=== PATIENT | female | born 1935 | race Caucasian/White ===

== ENCOUNTER 2019-05-26 20:00 | Outpatient (CLI) | payer MEDICARE, SELFPAY | END 2019-05-26 20:01 | disposition home or self-care (01) | LOC: SLEEP 05-27 09:32 | PROVIDERS: Family Provider Family Medicine; Visit Provider Anesthesiology Pain Medicine | DX: G47.33 Obstructive sleep apnea (adult) (pediatric) (principal) | CPT/HCPCS: 95810; 95811 ==

== ENCOUNTER 2019-07-26 12:42 | Outpatient (CLI) | payer MEDICARE, SELFPAY ==
--- NOTE | 2019-07-26 12:52 | US_ITS ---
WS: [id number] Complete ABDOMINAL ULTRASOUND HISTORY: RUQ PAIN COMPARISON: None available. Liver: 14.0 cm in length. Liver is normal size and echogenicity with no mass or intrahepatic dilatati on. Gallbladder: Normally distended with no gallstones, wall thickening or pericholecystic fluid. Gallbladder wall thickness: 0.1 cm. Pancreas: Normal size and echogenicity. CBD: 0.6 cm. Top normal size. Right kidney: 11.9 cm x 4.9 cm x 4.3 cm. No mass, cortical thickening or hydronephrosis. Left kidney: 9.8 cm x 5.2 cm x 4.6 cm. No mass, cortical thickening or hydronephrosis. Spleen: Spleen is normal size measuring 9.7 cm in length with granulomata. Abdominal aorta and IVC are within normal limits. No ascites. US/US abdomen complete* [id number] IMPRESSION: 1. No cholelithiasis. 2. No renal obstruction. 3. Splenic granulomata.
== END 2019-07-26 12:43 | disposition home or self-care (01) ==
LOC: RAD 12:46
PROVIDERS: Family Provider Family Medicine; PCP Nurse Practitioner Family; Visit Provider Nurse Practitioner Family
DX: D73.89 Other diseases of spleen (principal); R10.11 Right upper quadrant pain; R63.0 Anorexia; R63.4 Abnormal weight loss
CPT/HCPCS: 76700

== ENCOUNTER 2019-07-30 11:50 | Outpatient (CLI) | payer MEDICARE, SELFPAY ==
--- NOTE | 2019-07-30 | CT_ITS ---
WS: [id number] CT ABDOMEN AND PELVIS WITH CONTRAST HISTORY: RUQ PAIN / LOSS OF APPETITE TECHNIQUE: Imaging performed of the abdomen and pelvis with IV contrast. Single phase imaging of the abdomen. Coronal and sagittal reformats are submitted. All CT scans at [facility] use at least one of these dose optimization techniques: automated exposure control; mA and/or kV adjustment per patient size (includes targeted exams where dose is matched to clinical indication); or iterativ e reconstruction. IV CONTRAST: Omnipaque 300; 95 mL IV. Oral contrast: Yes. DLP: 907.17 mGycm COMPARISON: None available. Lower thorax: Chronic emphysema. Heart size is moderately enlarged. No hiatal hernia. Liver/biliary system: Liver is normal size. Moderate intrahepatic biliary duct dilatation is new sinc e the prior ultrasound. Common bile duct has increased in size to 10 mm. At the pancreatic head the c ommon bile duct is 7 mm diameter. Very mild dilatation of the pancreatic duct. No obstructing process identified. Gallbladder: Normal. No gallstones or wall thickening. No pericholecystic fluid. Pancreas: Poorly visualized pancreas. Pancreatic duct is dilated about 3 mm. Spleen: Normal size spleen with a cyst. Cyst in the superior portion of the spleen measures 11 mm. Adrenal glands: Normal. Right kidney: Normal. Left kidney: Normal. Aorta: Moderate atherosclerosis with no aneurysm. Lymphadenopathy: No lymph nodes are identified. Evaluation for subtle adenopathy is difficult as ther e is very little mesenteric and omental fat. Free fluid: None. GI tract: Mild constipation. No mucosal thickening. Abdominal wall: Diffuse anasarca throughout the subcutaneous soft tissues of the abdomen. Pelvis: Prior hysterectomy. Bones: Severe osteopenia. Advanced degenerative spondylitic changes throughout the lumbar spine. Dege nerative changes in the pelvis. No osteoblastic or osteolytic bone disease. CT/CT abdomen pelvis w con* [id number] IMPRESSION: 1. Interval development of intrahepatic and extra hepatic biliary duct dilatat ion. Common bile duct measures 10 mm. Etiology of the obstruction is not eviden t. Common bile duct tapers towards the ampulla of Vater. Distal obstructing sto ne, stricture or mass needs to be excluded. Recommend follow-up MRCP or ERCP fo r further evaluation. 2. Diffuse mild anasarca. 3. Severe osteopenia. 4. Chronic emphysema.
[2019-07-30] MEDS: iodixanol 320 mg/mL 100mL Btl IV (13:24)
[2019-07-30] MEDS: iohexol 300 mg/mL 50 mL Btl PO (13:24)
== END 2019-07-30 11:51 | disposition home or self-care (01) ==
LOC: RADWPI 11:55
PROVIDERS: Family Provider Family Medicine; PCP Nurse Practitioner Family; Visit Provider Nurse Practitioner Family
DX: J43.9 Emphysema, unspecified (principal); K83.8 Other specified diseases of biliary tract; R10.11 Right upper quadrant pain; R63.0 Anorexia; R63.4 Abnormal weight loss; R60.1 Generalized edema; M85.89 Other specified disorders of bone density and structure, multiple sites
CPT/HCPCS: 74177; Q9967

== ENCOUNTER 2019-11-06 10:59 | Emergency (ER) | payer MEDICARE, SELFPAY ==
[2019-11-06 11:10] VITALS: BP 168/75; PULSE 77; RESP 16; TEMP 36.4; O2SAT 98; BMI 15.7
--- NOTE | 2019-11-06 11:25 | W.ED.ABDPA2 ---
HPI - Abdominal Pain General: Chief Complaint: Abdominal Pain Stated Complaint: ABD PAIN Time Seen by Provider: 11/06/19 11:19 History of Present Illness: HPI narrative: 84-year-old female presents with complaint of abdominal pain. She is having epigastric pain that became painful last night she says it is more and more just tender today. 3 weeks ago she had an ERCP with a stent done at [facility] in [facility] she had choledocholithiasis. She supposed to be going back on the of this month presumably for a laparoscopic cholecystectomy. At the same time of the ERCP she had an esophageal dilation done states she is not had any lab work done since the stenting last night she was nauseous and had some bilious vomiting this morning the pain has improved overnight. She denies any diarrhea denies any dysuria urgency or frequency denies any recent upper respiratory symptoms MD elicited complaint: abdominal pain Pertinent past history: other (Choledocholithiasis with esophageal stricture) Onset (ago): hour(s) (Pain worsening overnight) Pain Consistency: intermittent Location: Epigastric Severity: severe (Severe last night mild now) Quality: cramping and stabbing Radiation: none Migration to: no migration Exacerbating factors: eating Relieving factors: rest Context: other (Choledocholithiasis with a recent ERCP stent placement with esophageal dilation in the same setting) Associated Symptoms: Reports anorexia, bloating, GI cramping, nausea, poor appetite and vomiting; Denies change in stool character, coffee ground emesis, diarrhea, dyspepsia, dysuria, fever(s), heartburn, hematochezia, hematuria, hematemesis, loose stools and melena Treatments prior to arrival: other (Patient on chronic narcotic medications) Review of Systems Const: Denies: fever(s) ENMT: Denies: throat pain, ear or mastoid pain, nasal discharge or nasal congestion Card: Denies: chest pain, edema, dyspnea on exertion or orthopnea Resp: Denies: dyspnea, productive cough or non-productive cough GI: Reports: nausea, vomiting, bloating and GI cramping; Denies: hematemesis, coffee ground emesis, heartburn, diarrhea, change in stool character, hematochezia or melena : Denies: dysuria or hematuria Skin/Breast: Denies: rash or pruritus PFSH ED PFSH: Medical History (Updated 11/06/19 @ 14:31 by David Palencia DO) Choledocholithiasis Esophageal dilatation Esophageal stricture Surgical History (Updated 11/06/19 @ 12:50 by David Palencia DO) H/O hysterectomy for benign disease Previous back surgery S/P ERCP S/P placement of cardiac pacemaker Social History Smoking and tobacco status: never smoked Physical Exam Const: COMMON NORMALS: no acute distress GENERAL APPEARANCE: cooperative and comfortable ORIENTATION/CONSCIOUSNESS: Yes awake, Yes oriented to person, Yes oriented to place and Yes oriented to time HENMT: COMMON NORMALS: normocephalic, atraumatic, hearing grossly normal bilaterally, external ears normal, EAC's normal, TM's normal bilaterally, Normal nasal mucous membranes and turbinates present, moist oral mucous membranes and oropharynx normal HEAD & SCALP: normocephalic and atraumatic NOSE: Normal nasal mucous membranes and turbinates present EXTERNAL EAR: Yes external ears normal EXTERNAL AUDITORY CANAL: EAC's normal TYMPANIC MEMBRANE: TM's normal bilaterally Eye: COMMON NORMALS: Equal, round and reactive pupils present, EOMs intact bilaterally, conjunctivae normal and no scleral icterus CONJUNCTIVA: Yes conjunctivae normal PUPIL: Yes Equal, round and reactive pupils present Neck/C-Spine: COMMON NORMALS: full ROM, no lymphadenopathy, supple and no JVD Lymph: LYMPHATIC: no lymphadenopathy noted and no lymphedema noted Resp: COMMON NORMALS: normal respiratory effort, No retractions, No use of accessory muscles and clear to auscultation bilaterally AUSCULTATION: clear to auscultation bilaterally Cardio: COMMON NORMALS: no JVD, regular rate, regular rhythm and No murmurs present (Cardio) RATE: regular rate RHYTHM: regular rhythm GI: COMMON NORMALS: Soft to palpation and No hepatosplenomegaly present AUSCULTATION: Yes normoactive bowel sounds PALPATION: Yes Soft to palpation, Yes Tenderness to palpation present (GI) (Epigastrium), No Guarding due to palpation present (GI) and Yes No hepatosplenomegaly present Extremity: COMMON NORMALS: normal to inspection, capillary refill normal, no clubbing, cyanosis or edema, no calf tenderness and no pedal edema Neuro: SENSORIUM/ORIENTATION: Yes oriented to person, Yes oriented to place and Yes oriented to time Skin: NARRATIVE SKIN EXAM: Stage III sacral decubitus ulcer approximately quarter sized over the tip of the coccyx and lower sacrum Course Vital Signs: Vital signs: Vital Signs Temperature 97.6 F 11/06/19 15:00 Pulse Rate 95 11/06/19 15:00 Respiratory Rate 16 11/06/19 15:00 Blood Pressure 153/88 11/06/19 15:00 Pulse Oximetry 95 11/06/19 15:00 MDM - Abdominal Pain MDM Narrative: Medical decision making narrative: She has no finding obstruction at this time and nothing really acute who will discharge her home she can use Reglan for nausea clear liquid diet for 24 hours or worsen or changes return. She has a pretty impressive sacral ulcer we will try to get her set up for the wound care clinic for that. She is scheduled to go back to [place] to have her lap axel done recommend that she continue with this. Lab Data: Attestation: I reviewed the patient's lab results. Labs: Lab Results 11/06/19 11/06/19 11/06/19 Range/Units 11:22 11:22 11:22 WBC 8.9 (4.0-10.0) 10^3/ uL RBC 3.83 L (4.1-5.3) 10^6/u L Hgb 11.7 (11.5-15.3) g/dL Hct 37.6 (37.0-47.0) % MCV 98.2 (81-99) fL MCH 30.5 (28.0-34.0) pg MCHC 31.1 (30.0-36.0) g/dL RDW 13.6 (12.1-15.1) % Plt Count 286 (130-400) 10^3/c mm MPV 11.6 H (7.4-10.4) fL Neut % (Auto) 80.9 % Lymph % (Auto) 14.6 % Owsley % (Auto) 3.8 % Eos % (Auto) 0.3 % Baso % (Auto) 0.2 % Neut # (Auto) 7.2 (1.8-7.7) 10^3/u L Lymph # (Auto) 1.3 (0.8-4.8) 10^3/u L Owsley # (Auto) 0.3 (0.2-0.9) 10^3/u L Eos # (Auto) 0.0 (0.0-0.8) 10^3/u L Baso # (Auto) 0.0 (0.0-0.1) 10^3/u L Nucleated RBC % (a uto) 0 % Nucleated RBCs # 0.0 /100WBC PT 19.10 H (10.5-13.3) SECO NDS INR 1.55 H (0.8-1.2) Sodium 142 (136-145) mmol/L Potassium 3.9 (3.5-5.1) mmol/L Chloride 101 (98-107) mmol/L Carbon Dioxide 33 H (22-29) mmol/L Anion Gap 11.9 (5-19) BUN 26 H (8-23) mg/dL Creatinine 0.3 L (0.5-0.9) mg/dL Glucose 153 H (65-115) mg/dL Calculated Osmolal ity 294 (285-295) mOsm/k g Calcium 9.7 (8.5-10.5) mg/dL Total Bilirubin 0.7 (0.15-1.2) mg/dL AST 28 (0-32) U/L ALT 27 (0-33) U/L Alkaline Phosphata se 121 H (35-105) IU/L Total Protein 6.5 L (6.6-8.7) g/dL Albumin 3.7 (3.5-5.2) g/dL Globulin 2.8 (1.3-4.6) g/dL Lipase 20 (13-60) U/L Urine Color (Yellow) Urine Appearance (CLEAR) Urine pH (5-7) Ur Specific Gravit y (1.005-1.030) Urine Protein (Negative) Urine Glucose (UA) (Normal) Urine Ketones (Negative) Urine Blood (Negative) Urine Nitrate (Negative) Urine Bilirubin (NEGATIVE) Prot Sulfosalicyli c Acd (Negative) Urine Urobilinogen (Negative) mg/dL Ur Leukocyte Siobhan ase (Negative) Urine RBC (0-2) /hpf Urine WBC (0-5) /hpf Ur Squamous Epith Cells (0-5) Amorphous Sediment Urine Bacteria (NONE) 20/20 Range/Units 14:32 WBC (4.0-10.0) 10^3/ uL RBC (4.1-5.3) 10^6/u L Hgb (11.5-15.3) g/dL Hct (37.0-47.0) % MCV (81-99) fL MCH (28.0-34.0) pg MCHC (30.0-36.0) g/dL RDW (12.1-15.1) % Plt Count (130-400) 10^3/c mm MPV (7.4-10.4) fL Neut % (Auto) % Lymph % (Auto) % Owsley % (Auto) % Eos % (Auto) % Baso % (Auto) % Neut # (Auto) (1.8-7.7) 10^3/u L Lymph # (Auto) (0.8-4.8) 10^3/u L Owsley # (Auto) (0.2-0.9) 10^3/u L Eos # (Auto) (0.0-0.8) 10^3/u L Baso # (Auto) (0.0-0.1) 10^3/u L Nucleated RBC % (a uto) % Nucleated RBCs # /100WBC PT (10.5-13.3) SECO NDS INR (0.8-1.2) Sodium (136-145) mmol/L Potassium (3.5-5.1) mmol/L Chloride (98-107) mmol/L Carbon Dioxide (22-29) mmol/L Anion Gap (5-19) BUN (8-23) mg/dL Creatinine (0.5-0.9) mg/dL Glucose (65-115) mg/dL Calculated Osmolal ity (285-295) mOsm/k g Calcium (8.5-10.5) mg/dL Total Bilirubin (0.15-1.2) mg/dL AST (0-32) U/L ALT (0-33) U/L Alkaline Phosphata se (35-105) IU/L Total Protein (6.6-8.7) g/dL Albumin (3.5-5.2) g/dL Globulin (1.3-4.6) g/dL Lipase (13-60) U/L Urine Color Straw (Yellow) Urine Appearance Hazy A (CLEAR) Urine pH 8 H (5-7) Ur Specific Gravit y 1.010 (1.005-1.030) Urine Protein Neg (Negative) Urine Glucose (UA) Norm (Normal) Urine Ketones Negative (Negative) Urine Blood Neg (Negative) Urine Nitrate Negative (Negative) Urine Bilirubin Neg (NEGATIVE) Prot Sulfosalicyli c Acd Negative (Negative) Urine Urobilinogen Norm (Negative) mg/dL Ur Leukocyte Siobhan ase Negative (Negative) Urine RBC None (0-2) /hpf Urine WBC None (0-5) /hpf Ur Squamous Epith Cells None (0-5) Amorphous Sediment 2+ Urine Bacteria Trace (NONE) Discharge Plan Discharge Patient Disposition: Home, Self-Care Clinical Impression: Cholelithiasis, Chronic back pain, Decubitus ulcer of sacral area Condition: Stable Prescriptions: New Reglan 10 mg tablet 10 mg PO Q6H PRN (Reason: nausea and vomiting) Qty: 20 RF: 0 No Action furosemide 40 mg tablet 40 mg PO DAILY RF: 0 sotalol 80 mg tablet 80 mg PO BID RF: 0 ondansetron HCl 4 mg tablet 4 mg PO Q6H PRN (Reason: nausea/vomiting) RF: 0 warfarin 2.5 mg tablet 2.5 mg PO DAILY RF: 0 potassium chloride 10 mEq tablet extended release 10 meq PO BID RF: 0 hydrocodone-acetaminophen 10-325 mg tablet 1 tab PO DAILY RF: 0 Euthyrox 25 mcg tablet 25 mcg PO DAILY RF: 0 morphine 60 mg tablet extended release 60 mg PO Q12H RF: 0 pantoprazole 40 mg tablet,delayed release (DR/EC) 40 mg PO BID RF: 0 ferrous sulfate 325 mg (65 mg iron) tablet 65 mg PO TID RF: 0 diltiazem HCl 120 mg capsule,extended release 24hr 120 mg PO BID RF: 0 hydrochlorothiazide 25 mg tablet 25 mg PO DAILY RF: 0 lovastatin 20 mg tablet 20 mg PO DAILY RF: 0 Discharge Orders: Discharge Order (Routine); Ordered 11/06/19 Ordered By: David Palencia Referrals: Jannette Villagran NP [Primary Care Provider] - Discharge Diet: As Directed Discharge Activity: Increase activity as tolerated Activity Restrictions/Additional Instructions: Case management will call to set up for wound care clinic Discharge Date/Time: 11/06/19 14:52 Coding Level of Care Code ED Packaging Line Attendant for Chg Fwd Exam Comprehensive
[2019-11-06 11:28] LABS: Basophils % 0.2 %; Eosinophils % 0.3 %; Hematocrit 37.6 % (37.0-47.0); Hemoglobin 11.7 g/dL (11.5-15.3); Lymphocytes # 1.3 10^3/uL (0.8-4.8); Lymphocytes % 14.6 %; Mean Corpuscular HGB Conc 31.1 g/dL (30.0-36.0); Mean Corpuscular Hemoglobin 30.5 pg (28.0-34.0); Mean Corpuscular Volume 98.2 fL (81-99); Mean Platelet Volume 11.6 fL (7.4-10.4); Monocytes # 0.3 10^3/uL (0.2-0.9); Monocytes % 3.8 %; Neutrophils # 7.2 10^3/uL (1.8-7.7); Neutrophils % 80.9 %; Nucleated Red Blood Cells % 0 %; Platelet Count 286 10^3/cmm (130-400); Red Blood Count 3.83 10^6/uL (4.1-5.3); Red Cell Distribution Width 13.6 % (12.1-15.1); White Blood Count 8.9 10^3/uL (4.0-10.0)
[2019-11-06 11:42] LABS: Alanine Aminotransferase 27 U/L (0-33); Albumin Level 3.7 g/dL (3.5-5.2); Alkaline Phosphatase 121 IU/L (35-105); Anion Gap 11.9 (5-19); Aspartate Amino Transferase 28 U/L (0-32); Blood Urea Nitrogen 26 mg/dL (8-23); Calcium 9.7 mg/dL (8.5-10.5); Carbon Dioxide 33 mmol/L (22-29); Chloride 101 mmol/L (98-107); Creatinine Clr Calc Pharmacy 33.3879; Globulin 2.8 g/dL (1.3-4.6); Glucose 153 mg/dL (65-115); Lipase 20 U/L (13-60); Osmolality Calculated 294 mOsm/kg (285-295); Potassium 3.9 mmol/L (3.5-5.1); Sodium 142 mmol/L (136-145); Total Bilirubin 0.7 mg/dL (0.15-1.2); Total Protein 6.5 g/dL (6.6-8.7)
--- NOTE | 2019-11-06 11:52 | USR_ITS ---
PROCEDURE INFORMATION: Exam: US Abdomen Limited, Right Upper Quadrant Exam date and time: 11/06/2019 11:54 AM Age: 84 years old Clinical indication: Abdominal pain; Patient HX: Recent cbd stent (still in place); Additional info: Abd pain TECHNIQUE: Imaging protocol: Real-time ultrasound of the abdomen with image documentation. Examination was focused on the right upper quadrant. COMPARISON: No relevant prior studies available. FINDINGS: Liver: Normal. No masses. Gallbladder: There is gallbladder sludge and questionable small gallstones. No gallbladder wall thickening. Common bile duct: Measures 0.5 cm. There is a biliary stent. Pancreas: Visualized pancreas is unremarkable. Right kidney: Measures 9.9 x 4.4 x 5.4 cm. The renal cortex thickness is 1.2 cm. No mass. No hydronephrosis. There is a small amount of perihepatic ascites. The aorta and IVC appear unremarkable. Incidental note is made of a right pleural effusion. US/US gall bladder [id number] IMPRESSION: No acute findings.
[2019-11-06 12:06] VITALS: RESP 16; O2SAT 98
[2019-11-06] MEDS: morphine 4 mg/mL SDV 1 mL 2 MG IVP (12:06)
[2019-11-06] MEDS: ondansetron 2 mg/ML SDV 2 mL 4 MG IVP (12:06)
[2019-11-06 13:08] LABS: INR 1.55 (0.8-1.2)
[2019-11-06] MEDS: sodium chloride 0.9% 1,000 ML 999 ML IV (13:18)
[2019-11-06 15:00] VITALS: BP 153/88; PULSE 95; RESP 16; TEMP 36.4; O2SAT 95
[2019-11-06 15:30] LABS: Add Urine Culture? No; Add Urine Microscopic? YES; Amorphous Sediment Urine 2+; Bacteria Urine TRACE; Bilirubin Urine Neg (NEGATIVE); Blood Urine Neg (Negative); Glucose Urine UA Norm (Normal); Ketones Urine Negative (Negative); Leukocyte Esterase Urine Negative (Negative); Nitrate Urine Negative (Negative); Protein Urine Neg (Negative); Sulfosalicylic Acid Urine Negative (Negative); Urine Appearance Hazy (CLEAR); Urine Color Straw (Yellow); Urobilinogen Urine Norm (Negative); pH Urine 8 (5-7)
--- NOTE | 2019-11-08 11:25 | DCPLANNER ---
integrated campaign manager had message to schedule a follow up appointment for patient with Wound Care. integrated campaign manager called the Wound Care clinic, spoke with Yadi, gave clinic patients information. A follow up appointment is scheduled for , November 11, 2019 at 8:00 with Tyra. Clinic will call patient with appointment information.
--- NOTE | 2019-11-17 13:41 | DCPLANNER ---
Patient did attend appointment scheduled for 11.11.19 with [facility].
== END 2019-11-06 14:52 | disposition home or self-care (01) ==
PROVIDERS: Physician Assistant; Emergency Provider Family Medicine; PCP Nurse Practitioner Family
DX: K80.20 Calculus of gallbladder without cholecystitis without obstruction (principal); G89.29 Other chronic pain; M54.9 Dorsalgia, unspecified; L89.159 Pressure ulcer of sacral region, unspecified stage; Z79.01 Long term (current) use of anticoagulants; Z95.0 Presence of cardiac pacemaker
CPT/HCPCS: 12345; 36415; 76705; 80053; 81001; 83690; 85025; 85610; 96361; 96374; 96375; 99283; J2270; J2405; J7030

== ENCOUNTER 2019-11-12 13:13 | Outpatient (CLI) | payer MEDICARE, SELFPAY ==
[2019-11-12 17:04] LABS: Alanine Aminotransferase 21 U/L (0-33); Albumin Level 3.6 g/dL (3.5-5.2); Alkaline Phosphatase 96 IU/L (35-105); Aspartate Amino Transferase 20 U/L (0-32); Blood Urea Nitrogen 29 mg/dL (8-23); Calcium 9.8 mg/dL (8.5-10.5); Carbon Dioxide 34 mmol/L (22-29); Chloride 99 mmol/L (98-107); Globulin 2.2 g/dL (1.3-4.6); Glucose 96 mg/dL (65-115); Osmolality Calculated 285 mOsm/kg (285-295); Sodium 139 mmol/L (136-145); Total Bilirubin 0.5 mg/dL (0.15-1.2); Total Protein 5.8 g/dL (6.6-8.7)
[2019-11-12 18:08] LABS: Prealbumin 13.3 mg/dL (20-40)
== END 2019-11-12 13:14 | disposition home or self-care (01) ==
LOC: WOUND 13:16
PROVIDERS: PCP Nurse Practitioner Family; Visit Provider Surgery
DX: I96 Gangrene, not elsewhere classified (principal); L89.153 Pressure ulcer of sacral region, stage 3
CPT/HCPCS: 11042; 36415; 80053; 84134; G0463

== ENCOUNTER 2019-11-16 09:25 | Outpatient (CLI) | payer MEDICARE, SELFPAY ==
--- NOTE | 2019-11-16 09:15 | FL_ITS ---
WS: [id number] UPPER GI WITH AIR TECHNICAL: FLUOROSCOPY TIME: 3.8 minutes CLINICAL INFORMATION: K22.2 Esophageal obstruction COMPARISON: None. FINDINGS: Exam somewhat limited due to patient mobility. Swallowing: Normal. Esophagus: Normal caliber with mild dysmotility. No high-grade stricture or obstructing lesion. Sligh tly delayed emptying. Gastroesophageal reflux: Trace reflux. No significant hiatal hernia. Stomach: Double contrast stomach appears unremarkable. 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 Duodenal otherwise appears normal. No evidence of high-grade obstruction or stri cture. Other findings: None. FL/FL upper GI w air* [id number] IMPRESSION: 1. Mild esophageal dysmotility with slightly delayed emptying. 2. No esophageal stricture. 3. Normal GE junction. Trace reflux. 4. 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 Stomach and duodenum otherwise appear normal. No visualized duodenal struct ures. 6. Exam is somewhat limited due to patient mobility.
== END 2019-11-16 09:26 | disposition home or self-care (01) ==
LOC: RAD 09:28
PROVIDERS: PCP Nurse Practitioner Family; Visit Provider Surgery
DX: K22.2 Esophageal obstruction (principal); K31.5 Obstruction of duodenum
CPT/HCPCS: 74246

== ENCOUNTER 2019-11-24 09:59 | Day surgery (SDC) | payer MEDICARE, SELFPAY ==
[2019-11-23 12:16] VITALS: BMI 18.3
--- NOTE | 2019-11-23 12:23 | ECG_ITS ---
[facility] Test Date: 2019-11-23 Pat Name: Melissa Rivera Department: Room: Gender: Female [employer]: : [id number] Requested By: Rosita Lugo Order Number: [id number] Keenan MD: Elijah Lacy M.D. Measurements Intervals [place] Rate: 70 P: 115 MO: 131 QRS: 11 QRSD: 77 T: 60 QT: 419 QTc: 453 Interpretive Statements ELECTRONIC ATRIAL PACEMAKER POSSIBLE RIGHT VENTRICULAR CONDUCTION DELAY [RSR (QR) IN V1/V2] PROBABLE SEPTAL MYOCARDIAL INFARCTION [35 ms Q WAVE IN V1/V2], PROBABLY OLD MODERATE T-WAVE ABNORMALITY, CONSIDER ANTEROLATERAL ISCHEMIA [-0.1+ mV T WAVE IN V3-V6] MODERATE T-WAVE ABNORMALITY, CONSIDER INFERIOR ISCHEMIA [-0.1+ mV T WAVE IN II/aVF] No previous ECG available for comparison Electronically Signed On 11-23-2019 16:59:10 CDT by Elijah Lacy M.D. [id number]
--- NOTE | 2019-11-23 13:03 | P.ANESASSM_ITS ---
Pre-Anesthetic Assessment Pre-Anesthetic Assessment: Height/Weight: Height 1.57 m Weight 45.359 kg Proposed Procedure: Operation Date: 11/24/19 13:55 Proposed Procedures p EGD with balloon Dilation(Not Applicable) - Chris Stuart MD s Laparoscopic poss open Cholecystectomy(Not Applicable) - Chris Stuatr MD Familial anesthetic complications: None Social: Social History: No alcohol and No tobacco Exam: Pre-Anes Outpt Exam: alert, oriented x 3, clear to auscultation sukumar aterally and regular rate & rhythm Airway: Cervical ROM: WNL MP: 3 Dentition: False Pulmonary: Pulmonary: None reported CV/HEM: CV/HEM: Afib Comments: Pacemaker : : None reported Hepatic: Hepatic: None reported GI: GI: GERD Comments: duodenal and esophageal stricture Metabolic: Metabolic: Hyperlipidemia and Thyroid Musc/skel: Musc/skel: Lower Back Pain Neuropsych: Neuropsych: None reported Anesthetic Plan: ASA status: 3 Anesthesia: General Risk of > 500 ml blood loss (7ml/kg in children): No PFSH Anesthesia PFSH: Medical History Atrial fibrillation Choledocholithiasis Duodenal stricture Esophageal dilatation Esophageal stricture GERD (gastroesophageal reflux disease) Hyperlipidemia Hypertension Hypothyroidism Surgical History H/O hysterectomy for benign disease Previous back surgery S/P ERCP S/P placement of cardiac pacemaker Family History Other CAD (coronary artery disease) Denies family history of Diabetes Anesthesia complication Bleeding disorder Cancer Social History Smoking and tobacco status: never smoked Alcohol intake: never Household members: family Marital status: Single Current occupational status: retired History of recent travel: No Data Anesthesia Cardiac Studies: No Data to Display
[2019-11-24] VITALS (12 sets, daily range): BP systolic 122–132; BP diastolic 52–89; PULSE 70–72; RESP 16–20; TEMP 36.2–37.2; O2SAT 94–100
[2019-11-24] MEDS: sodium chloride 0.9% 1,000 ML 30 ML IV (10:24)
--- NOTE | 2019-11-24 10:26 | W.PM.OPSUD ---
Surgery/Procedure H&P Update DATE OF PROCEDURE: November 24, 2019 DATE H&P PERFORMED: 11/09/19 H&P UPDATE INFORMATION: I have reviewed H&P completed within last 30 days, I have examined patient prior to procedure and No changes to prior documentation PLANNED PROCEDURE: Operation Date: 11/24/19 11:20 Proposed Procedures p EGD with balloon Dilation(Not Applicable) - Chris Stuart MD s Laparoscopic poss open Cholecystectomy(Not Applicable) - Chris Stuart MD
--- NOTE | 2019-11-24 12:28 | PM.OP ---
Operative Report Date of procedure: November 24, 2019 Pre-op Diagnosis: Esophageal stricture, duodenal stricture, choledocholithiasis status post ERCP Post-op Diagnosis: Choledocholithiasis s/p ERCP Esophageal stricture Duodenal stricture just proximal to the ampulla Procedure Done: Esophagogastroduodenoscopy with balloon dilation of esophageal stricture Balloon dilation of duodenal stricture Laparoscopic cholecystectomy Pathology: Gallbladder Surgeon: Chris Stuart Anesthesia: General Estimated blood loss (mL): 10 Condition: stable Disposition: PACU Procedure: The patient was taken to the operating room and was intubated under general anesthesia. After the antibiotic had been administered, the abdomen was prepped and draped in a sterile manner. Using a #15 blade, a 1 centimeter infraumbilical curvilinear incision was made and using an open Alok technique the peritoneal cavity was entered. A 10 millimeter port was placed and 15 millimeters of pneumoperitoneum was created. A 10 millimeter, 30 degrees scope was then introduced. Three 5 millimeter ports were placed in the epigastric, midclavicular and the anterior axillary line two fingerbreadths below the costal margin on the right side under the direct visualization. Ratcheted forceps were introduced into the lateral most port and was used to retract the fundus of the gallbladder cephalad and using forceps the infundibulum of the gallbladder was retracted laterally. Using L-hook cautery the peritoneum overlying the Calot's triangle was opened medially and laterally until the cystic duct and the cystic artery were skeletonized. Dissection was carried along the body of the gallbladder and after ensuring critical view of safety, 4 clips applied on the cystic duct and 3 clips applied on the cystic artery and cut leaving, 3 clips on the remaining portion of the duct and 2 clips on the remaining portion of the artery. The rest of the gallbladder was dissected off the liver using L-hook cautery. There was no bleeding or bile leaking noted from the gallbladder fossa and the clips appeared to be in place. An EndoCatch bag was introduced to remove the gallbladder. All the ports were removed under direct visualization and there was no bleeding noted from the port sites. The fascia of the umbilicus was closed using [id number] 0 Vicryl sutures and the subcutaneous tissue was approximated using 3-0 Vicryl sutures. The skin at all four ports were closed using 4-0 Monocryl and Dermabond. A total of 10 millimeters of 0.5% Marcaine was infiltrated around the port sites. Gastroscope was introduced and advanced up to the second portion of the duodenum where the ERCP stent was identified. Just proximal to the ampulla there was a stricture secondary to inflammation which was serially dilated using a balloon dilator 10/12/13.5/15 mm. The balloon dilated to 15 mm was held in place for 90 seconds. The pylorus, antrum, body and fundus of the stomach was normal. Z line was at 40 cm. There is a distal esophageal stricture which was serially dilated using a balloon dilator 12/13.5/15/16.5/18mm. The balloon dilated to 18 mm was held in place for 90 seconds. The gastroscope was slowly withdrawn. No evidence of perforation or bleeding noted. The rest of the esophagus was normal. The patient was extubated and transferred to recovery room in stable condition.
[2019-11-24] MEDS: HYDROcodone-acetaminophen 5-325 mg Tablet 1 TAB PO (13:58)
== END 2019-11-24 15:19 | disposition home or self-care (01) ==
LOC: OR 15:23
PROVIDERS: PCP Nurse Practitioner Family; Visit Provider Surgery
PROC: (CPT 47562; principal; 2019-11-24 11:20)
PROC: 0FT44ZZ Resection of Gallbladder, Percutaneous Endoscopic Approach (ICD-10-PCS; CPT 47562; 2019-11-24 11:20)
DX: K80.10 Calculus of gallbladder with chronic cholecystitis without obstruction (principal); K22.2 Esophageal obstruction; K31.5 Obstruction of duodenum; I48.91 Unspecified atrial fibrillation; Z95.0 Presence of cardiac pacemaker; K21.9 Gastro-esophageal reflux disease without esophagitis; E78.5 Hyperlipidemia, unspecified; E03.9 Hypothyroidism, unspecified; I10 Essential (primary) hypertension; Z79.01 Long term (current) use of anticoagulants; Z82.49 Family history of ischemic heart disease and other diseases of the circulatory system
CPT/HCPCS: 47562; 12345; 43249; 88304; 93005; 96365; J0690; J2001; J2405; J2704; J3010; J3490; J7030

== ENCOUNTER 2019-11-29 13:05 | Outpatient (CLI) | payer MEDICARE, SELFPAY | END 2019-11-29 13:06 | disposition home or self-care (01) | LOC: WOUND 13:07 | PROVIDERS: PCP Nurse Practitioner Family; Visit Provider Emergency Medicine | DX: I96 Gangrene, not elsewhere classified (principal); L89.153 Pressure ulcer of sacral region, stage 3 | CPT/HCPCS: 11042 ==

== ENCOUNTER 2019-12-13 09:44 | Outpatient (CLI) | payer MEDICARE, SELFPAY | END 2019-12-13 09:45 | disposition home or self-care (01) | PROVIDERS: PCP Nurse Practitioner Family; Visit Provider Nurse Practitioner Family | DX: L89.153 Pressure ulcer of sacral region, stage 3 (principal) | CPT/HCPCS: G0463 ==

== ENCOUNTER 2019-12-20 09:50 | Outpatient (CLI) | payer MEDICARE, SELFPAY | END 2019-12-20 09:51 | disposition home or self-care (01) | LOC: WOUND 09:51 | PROVIDERS: PCP Nurse Practitioner Family; Visit Provider Nurse Practitioner Family | DX: L89.153 Pressure ulcer of sacral region, stage 3 (principal) | CPT/HCPCS: G0463 ==

== ENCOUNTER 2019-12-27 10:01 | Outpatient (CLI) | payer MEDICARE, SELFPAY | END 2019-12-27 10:02 | disposition home or self-care (01) | LOC: WOUND 10:02 | PROVIDERS: PCP Nurse Practitioner Family; Visit Provider Emergency Medicine | DX: L89.153 Pressure ulcer of sacral region, stage 3 (principal) | CPT/HCPCS: 11042 ==

== ENCOUNTER 2020-01-03 10:16 | Outpatient (CLI) | payer MEDICARE, SELFPAY | END 2020-01-03 10:17 | disposition home or self-care (01) | LOC: WOUND 10:18 | PROVIDERS: PCP Nurse Practitioner Family; Visit Provider Emergency Medicine | DX: L89.153 Pressure ulcer of sacral region, stage 3 (principal) | CPT/HCPCS: 11042 ==

== ENCOUNTER 2020-01-10 13:04 | Outpatient (CLI) | payer MEDICARE, SELFPAY | END 2020-01-10 13:05 | disposition home or self-care (01) | LOC: WOUND 13:05 | PROVIDERS: PCP Nurse Practitioner Family; Visit Provider Emergency Medicine | DX: L89.153 Pressure ulcer of sacral region, stage 3 (principal) | CPT/HCPCS: 11042; 87070; 87077; 87176; 87186; 87205 ==

== ENCOUNTER 2020-01-17 13:10 | Outpatient (CLI) | payer MEDICARE, SELFPAY | END 2020-01-17 13:11 | disposition home or self-care (01) | LOC: WOUND 13:11 | PROVIDERS: PCP Nurse Practitioner Family; Visit Provider Emergency Medicine | DX: L89.153 Pressure ulcer of sacral region, stage 3 (principal) | CPT/HCPCS: 97597 ==

== ENCOUNTER 2020-01-27 13:10 | Outpatient (CLI) | payer MEDICARE, SELFPAY | END 2020-01-27 13:11 | disposition home or self-care (01) | LOC: WOUND 13:11 | PROVIDERS: PCP Nurse Practitioner Family; Visit Provider Emergency Medicine | DX: L89.153 Pressure ulcer of sacral region, stage 3 (principal) | CPT/HCPCS: 11042 ==

== ENCOUNTER 2020-02-03 14:05 | Outpatient (CLI) | payer MEDICARE, SELFPAY | END 2020-02-03 14:06 | disposition home or self-care (01) | LOC: WOUND 14:05 | PROVIDERS: PCP Nurse Practitioner Family; Visit Provider Nurse Practitioner Family | DX: L89.153 Pressure ulcer of sacral region, stage 3 (principal) | CPT/HCPCS: 11042; 84443; 85610; 87070; 87077; 87176; 87186; 87205 ==

== ENCOUNTER 2020-02-10 13:41 | Outpatient (CLI) | payer MEDICARE, SELFPAY | END 2020-02-10 13:42 | disposition home or self-care (01) | LOC: WOUND 13:42 | PROVIDERS: PCP Registered Nurse; Visit Provider Nurse Practitioner Family | DX: E03.9 Hypothyroidism, unspecified (principal); I48.91 Unspecified atrial fibrillation; L89.153 Pressure ulcer of sacral region, stage 3; R00.0 Tachycardia, unspecified; R79.89 Other specified abnormal findings of blood chemistry | CPT/HCPCS: 11042; 99204 ==

== ENCOUNTER 2020-02-17 13:26 | Outpatient (CLI) | payer MEDICARE, SELFPAY | END 2020-02-17 13:27 | disposition home or self-care (01) | LOC: WOUND 13:27 | PROVIDERS: PCP Registered Nurse; Visit Provider Nurse Practitioner Family | DX: L89.153 Pressure ulcer of sacral region, stage 3 (principal) | CPT/HCPCS: 11042 ==

== ENCOUNTER 2020-03-02 13:24 | Outpatient (CLI) | payer MEDICARE, SELFPAY | END 2020-03-02 13:25 | disposition home or self-care (01) | LOC: WOUND 13:25 | PROVIDERS: PCP Registered Nurse; Visit Provider Nurse Practitioner Family | DX: L89.153 Pressure ulcer of sacral region, stage 3 (principal) | CPT/HCPCS: 11042 ==

== ENCOUNTER 2020-03-09 13:06 | Outpatient (CLI) | payer MEDICARE, SELFPAY | END 2020-03-09 13:07 | disposition home or self-care (01) | LOC: WOUND 13:07 | PROVIDERS: PCP Registered Nurse; Visit Provider Thoracic Surgery (Cardiothoracic Vascular Surgery) | DX: L89.153 Pressure ulcer of sacral region, stage 3 (principal) | CPT/HCPCS: 11042 ==

== ENCOUNTER → 2020-03-21 11:04 | Outpatient (BNVA) | payer MEDICARE, SELFPAY | PROVIDERS: PCP Registered Nurse; Visit Provider Internal Medicine | DX: R79.89 Other specified abnormal findings of blood chemistry (principal) | CPT/HCPCS: 80053; 83516; 84439; 84443; 84480; 85025 ==

== ENCOUNTER → 2020-03-24 09:56 | Outpatient (BNVA) | payer MEDICARE, SELFPAY | PROVIDERS: PCP Registered Nurse; Visit Provider Internal Medicine | DX: I48.91 Unspecified atrial fibrillation (principal); R79.89 Other specified abnormal findings of blood chemistry | CPT/HCPCS: 99213 ==

== ENCOUNTER 2020-03-30 13:19 | Outpatient (CLI) | payer MEDICARE, SELFPAY | END 2020-03-30 13:20 | disposition home or self-care (01) | LOC: WOUND 13:20 | PROVIDERS: PCP Registered Nurse; Visit Provider Thoracic Surgery (Cardiothoracic Vascular Surgery) | DX: L89.153 Pressure ulcer of sacral region, stage 3 (principal) | CPT/HCPCS: 11042 ==

== ENCOUNTER → 2020-04-19 10:25 | Outpatient (BNVA) | payer MEDICARE, SELFPAY | PROVIDERS: PCP Registered Nurse; Visit Provider Internal Medicine | DX: E05.00 Thyrotoxicosis with diffuse goiter without thyrotoxic crisis or storm (principal); I48.91 Unspecified atrial fibrillation | CPT/HCPCS: 99213 ==

== ENCOUNTER 2020-05-01 13:04 | Outpatient (CLI) | payer MEDICARE, SELFPAY | END 2020-05-01 13:05 | disposition home or self-care (01) | LOC: WOUND 13:05 | PROVIDERS: PCP Registered Nurse; Visit Provider Nurse Practitioner Family | DX: I96 Gangrene, not elsewhere classified (principal); L89.153 Pressure ulcer of sacral region, stage 3 | CPT/HCPCS: 11042 ==

== ENCOUNTER 2020-05-09 10:08 | Outpatient (CLI) | payer MEDICARE, SELFPAY | END 2020-05-09 10:09 | disposition home or self-care (01) | PROVIDERS: PCP Registered Nurse; Visit Provider Nurse Practitioner Family | DX: L89.153 Pressure ulcer of sacral region, stage 3 (principal) | CPT/HCPCS: 11042 ==

== ENCOUNTER 2020-05-23 13:15 | Outpatient (CLI) | payer MEDICARE, SELFPAY | END 2020-05-23 13:16 | disposition home or self-care (01) | LOC: WOUND 13:16 | PROVIDERS: PCP Registered Nurse; Visit Provider Thoracic Surgery (Cardiothoracic Vascular Surgery) | DX: E05.00 Thyrotoxicosis with diffuse goiter without thyrotoxic crisis or storm (principal); I48.91 Unspecified atrial fibrillation; L89.153 Pressure ulcer of sacral region, stage 3 | CPT/HCPCS: 11042; 99213 ==

== ENCOUNTER → 2020-06-01 12:38 | Outpatient (BNVA) | payer MEDICARE, SELFPAY | PROVIDERS: PCP Registered Nurse; Referring Provider Registered Nurse; Visit Provider Anesthesiology Pain Medicine | DX: G89.29 Other chronic pain (principal); M51.36 Other intervertebral disc degeneration, lumbar region; M47.816 Spondylosis without myelopathy or radiculopathy, lumbar region; M41.9 Scoliosis, unspecified; Z79.899 Other long term (current) drug therapy; Z98.890 Other specified postprocedural states | CPT/HCPCS: 99205 ==

== ENCOUNTER 2020-06-12 13:02 | Outpatient (CLI) | payer MEDICARE, SELFPAY | END 2020-06-12 13:03 | disposition home or self-care (01) | LOC: WOUND 13:03 | PROVIDERS: PCP Registered Nurse; Visit Provider Nurse Practitioner Family | DX: L89.153 Pressure ulcer of sacral region, stage 3 (principal) | CPT/HCPCS: 11042 ==

== ENCOUNTER 2020-07-11 13:12 | Outpatient (CLI) | payer MEDICARE, SELFPAY | END 2020-07-11 13:13 | disposition home or self-care (01) | LOC: WOUND 13:12 | PROVIDERS: PCP Registered Nurse; Visit Provider Nurse Practitioner Family | DX: I96 Gangrene, not elsewhere classified (principal); L89.153 Pressure ulcer of sacral region, stage 3 | CPT/HCPCS: 11042 ==

== ENCOUNTER → 2020-07-17 14:26 | Outpatient (BNVA) | payer MEDICARE, SELFPAY | PROVIDERS: PCP Registered Nurse; Visit Provider Internal Medicine | DX: E05.00 Thyrotoxicosis with diffuse goiter without thyrotoxic crisis or storm (principal); G89.29 Other chronic pain; I48.91 Unspecified atrial fibrillation; M54.5 Low back pain; R74.8 Abnormal levels of other serum enzymes | CPT/HCPCS: 99214 ==

== ENCOUNTER → 2020-07-21 10:35 | Outpatient (BNVA) | payer MEDICARE, SELFPAY | PROVIDERS: PCP Registered Nurse; Visit Provider Internal Medicine | DX: E05.00 Thyrotoxicosis with diffuse goiter without thyrotoxic crisis or storm (principal); R74.8 Abnormal levels of other serum enzymes | CPT/HCPCS: 84080; 84439; 84443; 84480 ==

== ENCOUNTER 2020-07-25 13:07 | Outpatient (CLI) | payer MEDICARE, SELFPAY | END 2020-07-25 13:08 | disposition home or self-care (01) | LOC: WOUND 13:08 | PROVIDERS: PCP Registered Nurse; Visit Provider Thoracic Surgery (Cardiothoracic Vascular Surgery) | DX: L89.153 Pressure ulcer of sacral region, stage 3 (principal) | CPT/HCPCS: 11042 ==

== ENCOUNTER 2020-08-08 13:00 | Outpatient (CLI) | payer MEDICARE, SELFPAY | END 2020-08-08 13:01 | disposition home or self-care (01) | LOC: WOUND 13:01 | PROVIDERS: PCP Registered Nurse; Visit Provider Thoracic Surgery (Cardiothoracic Vascular Surgery) | DX: I96 Gangrene, not elsewhere classified (principal); L89.153 Pressure ulcer of sacral region, stage 3 | CPT/HCPCS: 11042 ==

== ENCOUNTER 2020-08-22 14:00 | Outpatient (CLI) | payer MEDICARE, SELFPAY | END 2020-08-22 14:01 | disposition home or self-care (01) | LOC: WOUND 14:04 | PROVIDERS: PCP Registered Nurse; Visit Provider Thoracic Surgery (Cardiothoracic Vascular Surgery) | DX: L89.153 Pressure ulcer of sacral region, stage 3 (principal) | CPT/HCPCS: 11042 ==

== ENCOUNTER 2020-08-29 14:00 | Outpatient (CLI) | payer MEDICARE, SELFPAY | END 2020-08-29 14:01 | disposition home or self-care (01) | LOC: WOUND 14:01 | PROVIDERS: PCP Registered Nurse; Visit Provider Thoracic Surgery (Cardiothoracic Vascular Surgery) | DX: Z09 Encounter for follow-up examination after completed treatment for conditions other than malignant neoplasm (principal) | CPT/HCPCS: 99212 ==

== ENCOUNTER → 2020-08-31 10:57 | Outpatient (BNVA) | payer MEDICARE, SELFPAY | PROVIDERS: PCP Registered Nurse; Visit Provider Internal Medicine | DX: E03.9 Hypothyroidism, unspecified (principal); E05.00 Thyrotoxicosis with diffuse goiter without thyrotoxic crisis or storm | CPT/HCPCS: 84439; 84443; 84480 ==

== ENCOUNTER → 2021-01-04 14:55 | Outpatient (BNVA) | payer MEDICARE, SELFPAY | PROVIDERS: PCP Registered Nurse; Visit Provider Family Medicine | DX: E03.9 Hypothyroidism, unspecified (principal); R74.8 Abnormal levels of other serum enzymes; I48.91 Unspecified atrial fibrillation; R53.83 Other fatigue; E78.5 Hyperlipidemia, unspecified; J44.9 Chronic obstructive pulmonary disease, unspecified; I10 Essential (primary) hypertension; E87.6 Hypokalemia; M51.36 Other intervertebral disc degeneration, lumbar region; M54.5 Low back pain; G89.29 Other chronic pain; E78.2 Mixed hyperlipidemia; F11.20 Opioid dependence, uncomplicated; Z79.899 Other long term (current) drug therapy | CPT/HCPCS: 80053; 80061; 82607; 82652; 84439; 84443; 84481; 85025 ==

== ENCOUNTER → 2021-02-05 10:06 | Outpatient (BNVA) | payer MEDICARE, SELFPAY | PROVIDERS: PCP Registered Nurse; Visit Provider Internal Medicine | DX: E03.9 Hypothyroidism, unspecified (principal); E05.00 Thyrotoxicosis with diffuse goiter without thyrotoxic crisis or storm | CPT/HCPCS: 84439; 84443; 84480 ==

== ENCOUNTER → 2021-03-09 10:13 | Outpatient (BNVA) | payer MEDICARE, SELFPAY | PROVIDERS: PCP Registered Nurse; Visit Provider Internal Medicine | DX: E03.9 Hypothyroidism, unspecified (principal); E78.2 Mixed hyperlipidemia; E05.00 Thyrotoxicosis with diffuse goiter without thyrotoxic crisis or storm; R79.89 Other specified abnormal findings of blood chemistry | CPT/HCPCS: 84439; 84480 ==

== ENCOUNTER → 2021-04-04 10:24 | Outpatient (BNVA) | payer MEDICARE, SELFPAY | PROVIDERS: PCP Registered Nurse; Visit Provider Internal Medicine | DX: E05.00 Thyrotoxicosis with diffuse goiter without thyrotoxic crisis or storm (principal); E03.9 Hypothyroidism, unspecified; I48.91 Unspecified atrial fibrillation; R74.8 Abnormal levels of other serum enzymes | CPT/HCPCS: 99214 ==

== ENCOUNTER → 2021-04-09 10:08 | Outpatient (BNVA) | payer MEDICARE, SELFPAY | PROVIDERS: PCP Registered Nurse; Visit Provider Internal Medicine | DX: E03.9 Hypothyroidism, unspecified (principal); E05.00 Thyrotoxicosis with diffuse goiter without thyrotoxic crisis or storm; E78.2 Mixed hyperlipidemia; R74.8 Abnormal levels of other serum enzymes; R79.89 Other specified abnormal findings of blood chemistry | CPT/HCPCS: 80053; 84439; 84480 ==

== ENCOUNTER → 2021-05-21 10:08 | Outpatient (BNVA) | payer MEDICARE, SELFPAY | PROVIDERS: PCP Registered Nurse; Visit Provider Internal Medicine | DX: E03.9 Hypothyroidism, unspecified (principal); E05.00 Thyrotoxicosis with diffuse goiter without thyrotoxic crisis or storm; R79.89 Other specified abnormal findings of blood chemistry | CPT/HCPCS: 84439; 84480 ==

== ENCOUNTER → 2021-06-11 10:34 | Outpatient (BNVA) | payer MEDICARE, SELFPAY | PROVIDERS: PCP Registered Nurse; Visit Provider Internal Medicine | DX: R79.89 Other specified abnormal findings of blood chemistry (principal); E03.9 Hypothyroidism, unspecified | CPT/HCPCS: 84443 ==

== ENCOUNTER → 2021-06-28 10:41 | Outpatient (BNVA) | payer MEDICARE, SELFPAY | PROVIDERS: PCP Registered Nurse; Visit Provider Family Medicine | DX: I10 Essential (primary) hypertension (principal); E03.9 Hypothyroidism, unspecified; E78.5 Hyperlipidemia, unspecified | CPT/HCPCS: 80048 ==

== ENCOUNTER → 2021-08-08 10:05 | Outpatient (BNVA) | payer BC, SELFPAY | PROVIDERS: PCP Registered Nurse; Visit Provider Nurse Practitioner Family | DX: E03.9 Hypothyroidism, unspecified (principal); E05.00 Thyrotoxicosis with diffuse goiter without thyrotoxic crisis or storm; E78.2 Mixed hyperlipidemia | CPT/HCPCS: 80053; 84439; 84443; 84480 ==

== ENCOUNTER → 2021-08-17 10:37 | Outpatient (BNVA) | payer BC, SELFPAY | PROVIDERS: PCP Registered Nurse; Visit Provider Internal Medicine | DX: I48.91 Unspecified atrial fibrillation (principal) | CPT/HCPCS: 80048 ==

== ENCOUNTER → 2021-09-11 09:55 | Outpatient (BNVA) | payer MEDICARE, SELFPAY | PROVIDERS: PCP Registered Nurse; Visit Provider Internal Medicine | DX: E05.00 Thyrotoxicosis with diffuse goiter without thyrotoxic crisis or storm (principal); R79.89 Other specified abnormal findings of blood chemistry | CPT/HCPCS: 84439; 84443; 84480 ==

== ENCOUNTER → 2021-11-21 09:02 | Outpatient (BNVA) | payer MEDICARE, SELFPAY | PROVIDERS: PCP Registered Nurse; Visit Provider Internal Medicine | DX: E05.00 Thyrotoxicosis with diffuse goiter without thyrotoxic crisis or storm (principal); E23.7 Disorder of pituitary gland, unspecified; I48.91 Unspecified atrial fibrillation; R74.8 Abnormal levels of other serum enzymes | CPT/HCPCS: 84439; 84443 ==

== ENCOUNTER → 2021-12-31 09:26 | Outpatient (BNVA) | payer MEDICARE, SELFPAY | PROVIDERS: PCP Registered Nurse; Visit Provider Nurse Practitioner Family | DX: E05.90 Thyrotoxicosis, unspecified without thyrotoxic crisis or storm (principal); I10 Essential (primary) hypertension; Z79.899 Other long term (current) drug therapy; F11.20 Opioid dependence, uncomplicated; E78.5 Hyperlipidemia, unspecified; E23.7 Disorder of pituitary gland, unspecified; E03.8 Other specified hypothyroidism; E03.9 Hypothyroidism, unspecified | CPT/HCPCS: 80053; 80061; 84439; 84443; 84480; 85025 ==

== ENCOUNTER → 2022-01-02 09:41 | Outpatient (BNVA) | payer MEDICARE, SELFPAY | PROVIDERS: PCP Registered Nurse; Visit Provider Nurse Practitioner Family | DX: R73.09 Other abnormal glucose (principal) | CPT/HCPCS: 83036 ==

== ENCOUNTER → 2022-01-17 13:46 | Outpatient (BNVA) | payer MEDICARE, SELFPAY | PROVIDERS: PCP Registered Nurse; Visit Provider Internal Medicine | DX: I48.91 Unspecified atrial fibrillation (principal); I10 Essential (primary) hypertension; E78.2 Mixed hyperlipidemia; Z95.0 Presence of cardiac pacemaker | CPT/HCPCS: 99204 ==

== ENCOUNTER → 2022-01-28 09:38 | Outpatient (BNVA) | payer MEDICARE, SELFPAY | PROVIDERS: PCP Registered Nurse; Visit Provider Internal Medicine | DX: E05.00 Thyrotoxicosis with diffuse goiter without thyrotoxic crisis or storm (principal); R79.89 Other specified abnormal findings of blood chemistry | CPT/HCPCS: 84439; 84443; 84480 ==

== ENCOUNTER → 2022-01-30 10:27 | Outpatient (BNVA) | payer MEDICARE, SELFPAY | PROVIDERS: PCP Nurse Practitioner Family; Visit Provider Internal Medicine | DX: E05.90 Thyrotoxicosis, unspecified without thyrotoxic crisis or storm (principal); E05.00 Thyrotoxicosis with diffuse goiter without thyrotoxic crisis or storm; E23.7 Disorder of pituitary gland, unspecified; I48.91 Unspecified atrial fibrillation; R74.8 Abnormal levels of other serum enzymes | CPT/HCPCS: 99214 ==

== ENCOUNTER → 2022-02-08 10:20 | Outpatient (BNVA) | payer MEDICARE, SELFPAY | PROVIDERS: PCP Nurse Practitioner Family; Visit Provider Internal Medicine | DX: Z45.010 Encounter for checking and testing of cardiac pacemaker pulse generator [battery] (principal) | CPT/HCPCS: 93280 ==

== ENCOUNTER → 2022-04-01 09:41 | Outpatient (BNVA) | payer MEDICARE, SELFPAY | PROVIDERS: PCP Nurse Practitioner Family; Visit Provider Internal Medicine | DX: E05.90 Thyrotoxicosis, unspecified without thyrotoxic crisis or storm (principal); E23.7 Disorder of pituitary gland, unspecified | CPT/HCPCS: 84439; 84443; 84480 ==

== ENCOUNTER 2022-04-09 07:32 | Outpatient (CLI) | payer MEDICARE, SELFPAY ==
--- NOTE | 2022-04-09 08:00 | CT_ITS ---
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 Additional ramin ging performed at 3.0 mm axial images status post IV contrast. Bone and soft tissue windows are revie wed. All CT scans at [facility] use at least one of these dose optimization techniques: autom ated exposure control; mA and/or kV adjustment per patient size (includes targeted exams where dose i s matched to clinical indication); or iterative reconstruction. CONTRAST: Omnipaque 350; 95 mL IV. DLP: 2024.38 mGy.cm COMPARISON: None available. No acute intracranial hemorrhage, edema or midline shift. Mild atrophy and small vessel ischemic dise ase. No large territory infarct. Mild ventriculomegaly on the basis of atrophy. There is no mass note d in the region of the sella turcica. The pituitary gland is identified in the very floor of the dors um sellae. There are no enhancing masses on the postcontrast imaging. CT is a very insensitive evalua tion of the pituitary gland. The sella turcica is nearly empty with fatty replacement. No enhancing mass or vascular malformations identified. Dural venous sinuses are normally enhancing. Visualized kashia of Lin is unremarkable. Paranasal sinuses as visualized: Clear. Mastoid air cells: Clear. Calvarium and scalp: Intact. CT/CT head wo/w con [id number] IMPRESSION: 1. Mild atrophy and small vessel ischemic disease. 2. No pituitary mass or enlargement of the dorsum sellae identified. 3. The pituitary is very small caliber along the floor of the dorsum sellae. C T is very insensitive examination of the pituitary gland. If there are no contr aindications MRI of the pituitary gland with contrast could also be obtained.
[2022-04-09 08:14] LABS: Blood Urea Nitrogen 13 mg/dL (8-23)
[2022-04-09] MEDS: iohexol 350 mg/mL 100 mL Btl IV (08:23)
== END 2022-04-09 07:33 | disposition home or self-care (01) ==
LOC: RAD 07:33
PROVIDERS: Radiology Diagnostic Radiology; PCP Nurse Practitioner Family; Visit Provider Internal Medicine
DX: E23.7 Disorder of pituitary gland, unspecified (principal); I67.82 Cerebral ischemia; G31.9 Degenerative disease of nervous system, unspecified
CPT/HCPCS: 70470; 82565; 84520; Q9967

== ENCOUNTER → 2022-07-03 09:13 | Outpatient (BNVA) | payer MEDICARE, SELFPAY | PROVIDERS: PCP Nurse Practitioner Family; Visit Provider Internal Medicine | DX: E05.00 Thyrotoxicosis with diffuse goiter without thyrotoxic crisis or storm (principal); E05.90 Thyrotoxicosis, unspecified without thyrotoxic crisis or storm | CPT/HCPCS: 84439; 84443; 84480 ==

== ENCOUNTER → 2022-07-31 11:04 | Outpatient (BNVA) | payer MEDICARE, SELFPAY | PROVIDERS: PCP Nurse Practitioner Family; Visit Provider Nurse Practitioner Family | DX: I10 Essential (primary) hypertension (principal); D64.9 Anemia, unspecified | CPT/HCPCS: 80053; 80061; 85025 ==

== ENCOUNTER → 2022-08-01 11:04 | Outpatient (BNVA) | payer MEDICARE, SELFPAY | PROVIDERS: PCP Nurse Practitioner Family; Visit Provider Nurse Practitioner Family | DX: R73.09 Other abnormal glucose (principal) | CPT/HCPCS: 83036 ==

== ENCOUNTER → 2022-11-05 09:18 | Outpatient (BNVA) | payer MEDICARE, SELFPAY | PROVIDERS: PCP Nurse Practitioner Family; Visit Provider Nurse Practitioner Family | DX: E03.8 Other specified hypothyroidism (principal); E23.7 Disorder of pituitary gland, unspecified; E05.90 Thyrotoxicosis, unspecified without thyrotoxic crisis or storm | CPT/HCPCS: 84439; 84443; 84480 ==

== ENCOUNTER → 2022-11-15 10:12 | Outpatient (BNVA) | payer MEDICARE, SELFPAY | PROVIDERS: PCP Nurse Practitioner Family; Visit Provider Internal Medicine | DX: I48.91 Unspecified atrial fibrillation (principal); I10 Essential (primary) hypertension; E78.2 Mixed hyperlipidemia; Z79.01 Long term (current) use of anticoagulants | CPT/HCPCS: 99214 ==

== ENCOUNTER → 2022-12-27 09:45 | Outpatient (BNVA) | payer MEDICARE, SELFPAY | PROVIDERS: PCP Nurse Practitioner Family; Visit Provider Nurse Practitioner Family | DX: E78.5 Hyperlipidemia, unspecified (principal); D64.9 Anemia, unspecified; I10 Essential (primary) hypertension; Z79.899 Other long term (current) drug therapy; E55.9 Vitamin D deficiency, unspecified | CPT/HCPCS: 80061; 82306; 83540 ==

== ENCOUNTER → 2023-05-05 09:10 | Outpatient (BNVA) | payer MEDICARE, SELFPAY | PROVIDERS: PCP Nurse Practitioner Family; Visit Provider Internal Medicine | DX: I10 Essential (primary) hypertension (principal); Z79.899 Other long term (current) drug therapy | CPT/HCPCS: 80053; 84439; 84443; 84480; 85025 ==

== ENCOUNTER → 2023-05-06 10:30 | Outpatient (BNVA) | payer MEDICARE, SELFPAY | PROVIDERS: PCP Nurse Practitioner Family; Visit Provider Internal Medicine | DX: R73.9 Hyperglycemia, unspecified (principal) | CPT/HCPCS: 83036 ==

== ENCOUNTER → 2023-07-24 12:25 | Outpatient (BNVA) | payer MEDICARE, SELFPAY | PROVIDERS: PCP Nurse Practitioner Family; Visit Provider Internal Medicine | DX: I48.91 Unspecified atrial fibrillation (principal); Z79.01 Long term (current) use of anticoagulants; I10 Essential (primary) hypertension; E78.2 Mixed hyperlipidemia | CPT/HCPCS: 99214 ==

== ENCOUNTER → 2023-07-29 10:11 | Outpatient (BNVA) | payer MEDICARE, SELFPAY | PROVIDERS: PCP Nurse Practitioner Family; Visit Provider Nurse Practitioner Family | DX: M54.50 Low back pain, unspecified (principal); I10 Essential (primary) hypertension; D64.9 Anemia, unspecified | CPT/HCPCS: 80053; 80061; 83036; 84443; 85025 ==

== ENCOUNTER 2023-08-08 10:23 | Outpatient (CLI) | payer MEDICARE, SELFPAY ==
--- NOTE | 2023-08-08 10:25 | XR_ITS ---
WS: [id number] Lumbar spine, 3 views, 08/08/2023 Clinical Data: M54.50 - Low back pain, unspecified Comparison: None. Findings: No compression fractures or subluxation is seen. There is severe osteoarthritic change and degenerati ve disc narrowing at all lumbar levels. The SI joints are normal. There is a dextroscoliosis of the lumbar spine. There is calcification in the wall of the abdominal a tereza with no aneurysm. There are cholecystectomy clips in the right upper quadrant. There is a pacema ker wire ending in the right ventricle Impression: 1. Severe osteoarthritis with bridging osteophytes. 2. Degenerative disc narrowing at all lumbar levels. 3. Dextroscoliosis of the lumbar spine.
== END 2023-08-08 10:24 | disposition home or self-care (01) ==
LOC: RAD 10:24
PROVIDERS: PCP Nurse Practitioner Family; Visit Provider Nurse Practitioner Family
DX: M47.896 Other spondylosis, lumbar region (principal); M25.78 Osteophyte, vertebrae; M54.50 Low back pain, unspecified
CPT/HCPCS: 72100

== ENCOUNTER → 2023-09-18 09:53 | Outpatient (BNVA) | payer MEDICARE, SELFPAY | PROVIDERS: PCP Nurse Practitioner Family; Referring Provider Nurse Practitioner Family; Visit Provider Anesthesiology Pain Medicine | DX: Z79.899 Other long term (current) drug therapy; M41.20 Other idiopathic scoliosis, site unspecified; M47.816 Spondylosis without myelopathy or radiculopathy, lumbar region; M51.36 Other intervertebral disc degeneration, lumbar region; G89.29 Other chronic pain; Z98.890 Other specified postprocedural states | CPT/HCPCS: 99205 ==

== ENCOUNTER → 2023-10-21 09:31 | Outpatient (BNVA) | payer MEDICARE, SELFPAY | PROVIDERS: PCP Nurse Practitioner Family; Visit Provider Internal Medicine | DX: E05.90 Thyrotoxicosis, unspecified without thyrotoxic crisis or storm (principal) | CPT/HCPCS: 84439; 84443; 84480 ==

== ENCOUNTER → 2023-11-04 10:30 | Outpatient (BNVA) | payer MEDICARE, SELFPAY | PROVIDERS: PCP Nurse Practitioner Family; Visit Provider Nurse Practitioner Family | DX: R73.09 Other abnormal glucose (principal) | CPT/HCPCS: 83036 ==

== ENCOUNTER → 2024-02-03 11:13 | Outpatient (BNVA) | payer MEDICARE, SELFPAY | PROVIDERS: PCP Nurse Practitioner Family; Visit Provider Nurse Practitioner Family | DX: I10 Essential (primary) hypertension (principal); R53.83 Other fatigue; Z79.899 Other long term (current) drug therapy | CPT/HCPCS: 80053; 80061; 82306; 83036; 84443; 85025 ==

== ENCOUNTER → 2024-03-24 08:57 | Outpatient (BNVA) | payer MEDICARE, SELFPAY | PROVIDERS: PCP Nurse Practitioner Family; Referring Provider Nurse Practitioner Family; Visit Provider Nurse Practitioner Family | DX: D48.5 Neoplasm of uncertain behavior of skin (principal); L57.0 Actinic keratosis; L72.0 Epidermal cyst; D18.01 Hemangioma of skin and subcutaneous tissue; L60.1 Onycholysis | CPT/HCPCS: 11102; 17000; 99203 ==

== ENCOUNTER → 2024-04-21 13:20 | Outpatient (BNVA) | payer MEDICARE, SELFPAY | PROVIDERS: PCP Nurse Practitioner Family; Visit Provider Dermatology | DX: L82.1 Other seborrheic keratosis (principal); L81.4 Other melanin hyperpigmentation; C44.619 Basal cell carcinoma of skin of left upper limb, including shoulder; D48.5 Neoplasm of uncertain behavior of skin | CPT/HCPCS: 11102; 11604; 12032; 99213 ==

== ENCOUNTER → 2024-04-26 09:07 | Outpatient (BNVA) | payer MEDICARE, SELFPAY | PROVIDERS: PCP Nurse Practitioner Family; Visit Provider Internal Medicine | DX: I10 Essential (primary) hypertension (principal); E03.9 Hypothyroidism, unspecified; E05.90 Thyrotoxicosis, unspecified without thyrotoxic crisis or storm | CPT/HCPCS: 84439; 84443; 84480 ==

== ENCOUNTER → 2024-04-29 10:15 | Outpatient (BNVA) | payer MEDICARE, SELFPAY | PROVIDERS: PCP Nurse Practitioner Family; Visit Provider Internal Medicine | DX: I48.91 Unspecified atrial fibrillation (principal); E05.00 Thyrotoxicosis with diffuse goiter without thyrotoxic crisis or storm; R74.8 Abnormal levels of other serum enzymes | CPT/HCPCS: 99214 ==

== ENCOUNTER → 2024-06-07 09:40 | Outpatient (BNVA) | payer MEDICARE, SELFPAY | PROVIDERS: PCP Nurse Practitioner Family; Visit Provider Dermatology | DX: B00.1 Herpesviral vesicular dermatitis (principal); L01.01 Non-bullous impetigo; C44.329 Squamous cell carcinoma of skin of other parts of face; L57.0 Actinic keratosis | CPT/HCPCS: 12052; 17000; 17311; 99214 ==

== ENCOUNTER → 2024-09-20 15:02 | Outpatient (BNVA) | payer MEDICARE, SELFPAY | PROVIDERS: PCP Nurse Practitioner Family; Visit Provider Nurse Practitioner Family | DX: R53.83 Other fatigue (principal); I10 Essential (primary) hypertension; Z79.899 Other long term (current) drug therapy; R25.2 Cramp and spasm | CPT/HCPCS: 80053; 80061; 82306; 83735; 85025 ==

== ENCOUNTER → 2024-10-28 08:42 | Outpatient (BNVA) | payer MEDICARE, SELFPAY | PROVIDERS: PCP Nurse Practitioner Family; Visit Provider Nurse Practitioner Family | DX: L81.4 Other melanin hyperpigmentation (principal); L57.8 Other skin changes due to chronic exposure to nonionizing radiation; L82.1 Other seborrheic keratosis; D18.01 Hemangioma of skin and subcutaneous tissue; Z08 Encounter for follow-up examination after completed treatment for malignant neoplasm; Z85.828 Personal history of other malignant neoplasm of skin; D48.5 Neoplasm of uncertain behavior of skin | CPT/HCPCS: 11102; 99213 ==

== ENCOUNTER → 2024-12-28 10:40 | Outpatient (BNVA) | payer MEDICARE, SELFPAY | PROVIDERS: PCP Nurse Practitioner Family; Visit Provider Nurse Practitioner Family | DX: I10 Essential (primary) hypertension (principal); R53.83 Other fatigue; E55.9 Vitamin D deficiency, unspecified; L02.91 Cutaneous abscess, unspecified; Z79.899 Other long term (current) drug therapy | CPT/HCPCS: 80053; 80061; 82306; 85025; 87070 ==

== ENCOUNTER → 2024-12-29 12:53 | Outpatient (BNVA) | payer MEDICARE, SELFPAY | PROVIDERS: PCP Nurse Practitioner Family; Visit Provider Internal Medicine | DX: Z45.018 Encounter for adjustment and management of other part of cardiac pacemaker (principal) | CPT/HCPCS: 83036; 93296 ==

== ENCOUNTER → 2025-01-11 08:26 | Outpatient (BNVA) | payer MEDICARE, SELFPAY | PROVIDERS: PCP Nurse Practitioner Family; Visit Provider Nurse Practitioner Family | DX: D48.5 Neoplasm of uncertain behavior of skin (principal); R20.8 Other disturbances of skin sensation; R23.8 Other skin changes; R20.9 Unspecified disturbances of skin sensation; L72.0 Epidermal cyst; L57.8 Other skin changes due to chronic exposure to nonionizing radiation; Z08 Encounter for follow-up examination after completed treatment for malignant neoplasm; Z85.828 Personal history of other malignant neoplasm of skin; Z09 Encounter for follow-up examination after completed treatment for conditions other than malignant neoplasm; Z87.2 Personal history of diseases of the skin and subcutaneous tissue | CPT/HCPCS: 11104; 99214 ==

== ENCOUNTER → 2025-01-27 12:42 | Outpatient (BNVA) | payer MEDICARE, SELFPAY | PROVIDERS: PCP Nurse Practitioner Family; Visit Provider Internal Medicine | DX: I48.91 Unspecified atrial fibrillation (principal); I10 Essential (primary) hypertension; E78.2 Mixed hyperlipidemia; R01.1 Cardiac murmur, unspecified; Z79.01 Long term (current) use of anticoagulants; Z87.891 Personal history of nicotine dependence | CPT/HCPCS: 99214 ==

== ENCOUNTER → 2025-02-16 12:43 | Outpatient (BNVA) | payer MEDICARE, SELFPAY | PROVIDERS: PCP Nurse Practitioner Family; Visit Provider Dermatology | DX: L72.0 Epidermal cyst (principal); L53.8 Other specified erythematous conditions; R20.8 Other disturbances of skin sensation | CPT/HCPCS: 11404; 12032; 99212 ==

== ENCOUNTER 2025-02-25 13:50 | Outpatient (CLI) | payer MEDICARE, SELFPAY ==
--- NOTE | 2025-02-25 15:00 | USCV_ITS ---
Melissa Rivera Age: 89 Gender: F : 1935 Exam Date: 02/25/2025 14:10 Ordering Phys: Vahid Dumont M.D ([email or web address]) Technologist: DINORA Exam Location: [facility] – [place] Indication: murmur BP: 136 / 72 HR: 70 Rhythm: Sinus Technical Quality: Adequate MEASUREMENTS (Male / Female) Normal Values 2D ECHO LV Diastolic Diameter PLAX 4.8 cm 4.2 - 5.9 / 3.9 - 5.3 cm IVS Diastolic Thickness 0.8 cm 0.6 - 1.0 / 0.6 - 0.9 cm IVS Systolic Thickness 1.4 cm LVPW Diastolic Thickness 1.5 cm 0.6 - 1.0 / 0.6 - 0.9 cm LVPW Systolic Thickness 1.5 cm LVOT Diameter 2.1 cm LV Ejection Fraction 2D Teich 53.5 % LV Ejection Fraction MOD 4C 60.2 % LV Ejection Fraction MOD 2C 62.5 % LV Ejection Fraction 2C AL 63.2 % LA Diameter 3.6 cm RA Systolic Volume 4C AL 54.5 ml RA Systolic Volume 4C MOD 52.4 ml LA Sys Volume AL 66.1 cm cubed LA Sys Volume Index AL 37.1 cm cubed/m squared Aorta at Sinotubular Diameter 1.8 cm M-MODE LA Ao Ratio MM 1.4 AV Cusp Separation MM 0.9 cm DOPPLER AV Peak Velocity 287.0 cm/s LVOT Peak Velocity 78.0 cm/s AV Area Cont Eq vti 0.9 cm squared AV Area Cont Eq pk 0.9 cm squared MV Peak Velocity 82.0 cm/s MV Area PHT 3.7 cm squared Mitral E to A Ratio 1.2 TV Peak Velocity 154.0 cm/s TR Peak Velocity 217.0 cm/s TR Peak Gradient 18.8 mmHg TV Peak E Velocity 59.0 cm/s PV Peak Velocity 95.0 cm/s FINDINGS Left Ventricle Normal left ventricular size, systolic function and wall thickness, with no regional wall motion abnormalities. Left ventricular ejection fraction is estimated at 60%. Grade II/IV diastolic dysfunction, moderately elevated filling pressures. Right Ventricle Normal right ventricular size and systolic function. Right Atrium Normal right atrial size. Left Atrium Moderately increased left atrial size. IA Septum Normal appearance of the interatrial septum. Mitral Valve Moderately thickened mitral valve. Moderate mitral annular calcification. No mitral valve stenosis. Mild mitral valve regurgitation. Aortic Valve Severe aortic valve calcification. Moderate aortic valve stenosis, mean gradient 18.6 mmHg, CLAUDIA 0.89 cm squared. No aortic valve regurgitation. Tricuspid Valve Mild tricuspid valve regurgitation. Pulmonic Valve Normal pulmonic valve structure. No pulmonic valve stenosis or regurgitation. Pericardium No pericardial effusion. Aorta Normal diameter of the aortic root and ascending thoracic aorta. IVC Normal IVC diameter. CONCLUSIONS Normal left ventricular size, systolic function and wall thickness, with no regional wall motion abnormalities. Left ventricular ejection fraction is estimated at 60%. Grade II/IV diastolic dysfunction, moderately elevated filling pressures. Severe aortic valve calcification. Moderate aortic valve stenosis, mean gradient 18.6 mmHg, CLAUDIA 0.89 cm squared. No aortic valve regurgitation. Moderately thickened mitral valve. Moderate mitral annular calcification. No mitral valve stenosis. Mild mitral valve regurgitation. There is no pericardial effusion. Right atrial pressure is around 10 mm of mercury. Paul Rice MD (Electronically Signed) Final Date: 07 March 2025 20:44 S
== END 2025-02-25 13:51 | disposition home or self-care (01) ==
LOC: RAD 13:52
PROVIDERS: PCP Nurse Practitioner Family; Visit Provider Internal Medicine
DX: R01.1 Cardiac murmur, unspecified (principal); R93.1 Abnormal findings on diagnostic imaging of heart and coronary circulation; I51.7 Cardiomegaly; I34.81 Nonrheumatic mitral (valve) annulus calcification; I34.0 Nonrheumatic mitral (valve) insufficiency; I35.8 Other nonrheumatic aortic valve disorders; I35.0 Nonrheumatic aortic (valve) stenosis; I07.1 Rheumatic tricuspid insufficiency
CPT/HCPCS: 93306

== ENCOUNTER → 2025-03-02 12:48 | Outpatient (BNVA) | payer MEDICARE, SELFPAY | PROVIDERS: PCP Nurse Practitioner Family; Visit Provider Dermatology | DX: L72.0 Epidermal cyst (principal); R20.8 Other disturbances of skin sensation; L53.8 Other specified erythematous conditions | CPT/HCPCS: 11402; 11403; 12032 ==

== ENCOUNTER → 2025-04-06 10:20 | Outpatient (BNVA) | payer MEDICARE, SELFPAY | PROVIDERS: PCP Nurse Practitioner Family; Visit Provider Nurse Practitioner Family | DX: I10 Essential (primary) hypertension (principal); R53.83 Other fatigue | CPT/HCPCS: 80053; 80061; 84443; 85025 ==

== ENCOUNTER → 2025-05-04 09:41 | Outpatient (BNVA) | payer MEDICARE, SELFPAY | PROVIDERS: PCP Nurse Practitioner Family; Visit Provider Internal Medicine Cardiovascular Disease | DX: Z45.018 Encounter for adjustment and management of other part of cardiac pacemaker (principal) | CPT/HCPCS: 93296 ==